=== PATIENT | female | born 1985 | race Caucasian/White ===

== ENCOUNTER 2019-10-27 07:39 | Inpatient (IN) ==
[2019-10-27] MEDS ORDERED: OXYTOCIN 30 UNITS/500 ML BAG IV PRN ×2 (07:53)
[2019-10-27 08:14] LABS: Hematocrit (blood only) 38.6 % (37-47); Mean Corpuscular Hemoglobin 31.6 pg (25-34); Mean Corpuscular Volume 93.7 fL (80-100); Mean Platelet Volume 9.3 fL (7.4-10.4); Platelet Count 327 K/uL (130-400); RDW Coefficient of Variation 14.7 % (11.5-14.5); RDW Standard Deviation 50.3 fL (36.4-46.3); Red Blood Count 4.12 M/uL (4.2-5.4); White Blood Count 9.38 K/uL (4.8-10.8)
[2019-10-27 08:17] LABS: Mean Corpuscular Hgb Conc 33.7 g/dL (32-36)
[2019-10-27 08:43] LABS: Albumin Level 2.6 gm/dl (3.4-5.0); BUN Creatinine Ratio 13.7 (10-20); Calcium 8.6 mg/dl (8.5-10.1); Creatinine Clr Calc Pharmacy 130.4 ml/min; Est GFR (African American) 137.8; Est GFR (Non-African American) 118.9; Potassium 3.9 mmol/L (3.5-5.1)
[2019-10-27 08:45] LABS: Albumin Globulin Ratio 0.7 (0.9-2); Bilirubin,Total 0.3 mg/dl (0.2-1); Total Protein 6.6 gm/dl (6.4-8.2)
[2019-10-27] MEDS: LACTATED RINGER'S 1,000 ML IV PRN ×3 (09:02→18:03)
--- NOTE | 2019-10-27 12:33 | Labor Progress Brief Note ---
Date of Service October 27, 2019 Subjective Reason For Note: Routine Evaluation Current Pain Level(1-10): 5 Assessment & Plan (1) resulting from in vitro fertilization: Cat 1. Progressing slowly. GBS negative Physical Exam Genitourinary: Manual OB Exam: + cervical dilation 2 cm, + cervical effacement 80%, + station -2 and + amniotic fluid clear OB Exam Monitor Tracing: + external FHT monitor used, + external uterine monitor used, + category I and + normal FHT variability; no early decelerations present, no late decelerations present and no variable decelerations Results & Data Vital Signs (Past 12 Hours) Vital Signs Temp Pulse Resp BP 10/27/19 12:06 76 118/74 10/27/19 11:06 65 119/78 10/27/19 11:01 36.9 C 18 10/27/19 10:08 36.8 C 10/27/19 10:05 68 129/76 10/27/19 09:05 81 121/83 10/27/19 08:04 36.6 C 16 10/27/19 07:48 80 127/77
[2019-10-27] MEDS ORDERED: ePHEDrine sulfate 50 MG/ML AMP ONE (14:02)
[2019-10-27] MEDS ORDERED: fentaNYL citrate 100 MCG/2 ML VIAL ONE (14:02)
[2019-10-27] MEDS ORDERED: BUPIVACAINE 0.25% 30 ML VIAL ONE (14:02)
[2019-10-27] MEDS ORDERED: fentaNYL 2MCG/ML ROPIV 1.25MG/ML 100 ML BAG EPI ONE (14:03)
[2019-10-27] MEDS ORDERED: ePHEDrine sulfate 50 MG/ML AMP IV PRN (14:21)
[2019-10-27] MEDS ORDERED: NALBUPHINE HCL INJ 10 MG/ML AMP IV PRN (14:21)
[2019-10-27] MEDS ORDERED: fentaNYL 2MCG/ML ROPIV 1.25MG/ML 100 ML BAG EPI PRN (14:21)
[2019-10-27] MEDS ORDERED: ONDANSETRON INJ 2 MG/ML 2 ML VIAL IV PRN (14:21)
[2019-10-27] MEDS ORDERED: NALOXONE HCL 0.4 MG/1 ML VIAL/CARP IV PRN (14:21)
[2019-10-27] MEDS ORDERED: DiphenhydrAMINE HCL 50 MG/ML VIAL IV PRN (14:21)
[2019-10-27] MEDS ORDERED: NALOXONE HCL 1 MG in SODIUM CHLORIDE 0.9% 1000ML 1,000 ML IV PRN (14:21)
--- NOTE | 2019-10-27 14:27 | Anesthesiology Consultation ---
Date of Service October 27, 2019 Assessment & Plan (1) Encounter for pre-operative examination: Chart Review Chart Review: Acceptable Risk for Labor Epidural Consults Requested none ASA ASA2 Proposed Anesthesia Anesthesia Type: Labor Epidural Risk / Benefits Reviewed With: PT / POA / Parent / Guardian, Accepts Plan and Informed Consent Obtained History Height/Weight Height: 5 ft 2 in Weight: 81.193 kg Allergies Allergy/AdvReac Type Severity Reaction Status Date / Time Penicillins Allergy Rash Verified 10/27/19 08:01 Medications Home Medications Medication Instructions Recorded Confirmed Last Taken cholecalciferol (vitamin D3) 2,000 unit PO DAILY 10/23/19 10/27/19 10/26/19 12:00 [Vitamin D3] vit no.[id number] 1 tab PO DAILY 10/23/19 10/27/19 10/26/19 12:00 [ Vitamin] Active Medications Generic Name Dose Route Start Last Admin Trade Name Freq PRN Reason Stop Dose Admin Lactated Ringer's 1,000 mls @ 125 mls/hr 10/27/19 07:53 10/27/19 14:05 Lr IV 10/29/19 07:52 999 mls/hr .Q8H PRN Administration L&D Protocol Protocol Oxytocin 30 units in 500 mls @ 10 mls/hr 10/27/19 07:53 10/27/19 12:00 Pitocin IV 10/29/19 07:52 0.6 units/hr .Q24H PRN 10 mls/hr Labor Induction/Augmentation Titration Protocol 0.6 UNITS/HR Past Medical History Medical History History of chicken pox History of female infertility Screening, , for anatomic survey (Inactive) Exercise / Class Metabolic Activity II 4-5 Yardwork/Stairs/Walk up hill Past Family History Family History Mother Cardiac disorder Hypertension Osteoporosis Dyslipidemia Father Hypertension Dyslipidemia Uncle Hemochromatosis paternal uncle Grandfather (Paternal) Diabetes Past Surgical History Surgical History History of hysterosalpingogram History of in vitro fertilization Past Anesthesia History No Hx of Anesthesia Complications and No Family Hx of Anesthesia Complications History of PONV No Hx of PONV and No Hx of Motion Sickness Social History Smoking Status: Never smoker Hx Alcohol Use: No Hx Substance Use: No substance use type: does not use Physical Exam Vital Signs Last Vital Signs Temp 98.4 F 10/27/19 12:49 Pulse 75 10/27/19 14:21 Resp 18 10/27/19 11:01 BP 105/65 10/27/19 14:21 Pulse Ox 99 10/27/19 14:19 ENMT Mouth: no dentition abnormality Thyromental Distance: > or= 3.5 Finger Breadths Mallampati Class: II Neck normal visual inspection Respiratory normal respiratory effort Auscultation: lungs clear to auscultation bilaterally Cardiovascular Rate/Rhythm: regular rate and regular rhythm Testing Laboratory Results 10/27/19 08:04 10/27/19 08:04
[2019-10-27 22:26] LABS: Base Excess Cord Arterial Bld -15.9 mEq/L (-9-1.8); Base Excess Cord Venous Blood -12.3 mEq/L (-7.7-1.9); CO2 Cord Arterial Blood 71 mmHg (39.1-73.5); Cord Venous Blood HCO3 17 mmol/L (18.4-26.8); Cord Venous Blood PCO2 52 mmHg (30.4-57.2); Cord Venous Blood PO2 23 mmHg (14.1-43.3); Cord Venous Blood pH 7.13 (7.20-7.44); HCO3 Cord Arterial Blood 17 mmol/L (19.7-28.5); O2 Saturation Cord Venous Bld < 60.0 % (<68); Oxygen Sat Cord Arterial Blood < 60.0 % (<60)
--- NOTE | 2019-10-27 23:39 | Delivery Summary ---
DATE OF OPERATION: 10/27/2019 PROCEDURE: Normal spontaneous vaginal delivery with second-degree perineal laceration repair. SURGEON: Mychal Collins MD PREOPERATIVE DIAGNOSES: 1. Single intrauterine at term. 2. resulting from in-vitro fertilization. 3. Elective induction of labor. POSTOPERATIVE DIAGNOSIS: Status post delivery, thick meconium. ESTIMATED BLOOD LOSS: 350 mL. DRAINS: None. FLUIDS: Continuous lactated Ringer. URINE OUTPUT: Approximately 400 mL via straight cath at the completion of the case. COMPLICATIONS: None. FINDINGS: Viable male with weight of 6 pounds 0 ounces with Apgars of 3, 6, and 8 at 1, 5, and 10 minutes respectively. INDICATIONS: Karyn is a 34-year-old G1, P0, admitted at 39 weeks 1 day gestational age for elective induction of labor. At initial evaluation, she was found to be 1-2 cm dilated, 80% effaced, -3 station. The patient was started on oxytocin per regular protocol. She underwent spontaneous rupture of membranes and progressed in labor. On reevaluation, she was found to be approximately 5 cm dilated, at which time she got an epidural. The patient continued to progress in labor to complete-complete +2 station, at which time she felt the urge to push and pushed for approximately 2 hours to achieve delivery. DESCRIPTION OF PROCEDURE: The patient progressed to 10 cm dilated, 100% effaced, +2 station, pushed over intact perineum with epidural anesthesia and delivered a viable male with weight and Apgars as noted above. Head of the delivered in BERNARDO position, rest into right transverse. A single nuchal was noted which was easily reduced. There was noted to be a posterior compound arm which was reduced to achieve delivery. There was noted to be terminal thickness and meconium stained fluid and the was noted to be floppy upon delivery. Approximately 20-25 seconds of stimulation with suction bulb occurred. The baby was still not showing signs of activity and the cord was double clamped and cut. was taken to the waiting nursery staff. Segment cord blood was obtained. Attention was then turned to the delivery of the placenta, which was delivered intact with 3-vessel cord with gentle cord traction. On inspection of the perineum, vagina, and cervix, there was noted to be a second-degree perineal laceration extending up into bilateral sulcal lacerations. These were repaired with 3-0 Vicryl continuous running locked suture with continuation at the perineum of a crown suture. The needle, sponge, and instrument counts were correct at the completion of the case. Both mother and were stable in the immediate post-delivery period and remained in the room. I attest to the content of the Intraoperative Record and any orders documented therein. Any exception s are noted below.
[2019-10-28] MEDS ORDERED: SUPERCREAM 0.870% 15 GM JAR EXT PRN (00:58)
[2019-10-28] MEDS ORDERED: bisacodyL 10 MG SUPP PR PRN (00:58)
[2019-10-28] MEDS ORDERED: OXYTOCIN 30 UNITS/500 ML BAG IV PRN (00:58)
[2019-10-28] MEDS ORDERED: BENZOCAINE 20% AER SPR 82.5 GM CAN EXT PRN (00:58)
[2019-10-28] MEDS ORDERED: HYDROCORTISONE ACETATE 25 MG SUPP PR PRN (00:58)
[2019-10-28] MEDS ORDERED: ACETAMINOPHEN 325 MG TAB PO PRN (00:58)
[2019-10-28] MEDS ORDERED: DIPHTHERIA/TETANUS/PERTUSSIS 0.5 ML SYR/VIAL IM ONE (00:58)
[2019-10-28] MEDS: IBUPROFEN 600 MG TAB PO PRN ×2 (02:58→18:53)
[2019-10-28 06:40] LABS: Hematocrit (blood only) 34.2 % (37-47); Hemoglobin 11.4 g/dL (12.0-16.0)
--- NOTE | 2019-10-28 07:27 | Anesthesia Procedure Note ---
Date of Service October 28, 2019 Anesthesia Post Epidural Note Vital Signs Vital Signs: Temp Pulse Resp BP Pulse Ox 36.6 C 86 20 125/78 97 10/28/19 05:00 10/28/19 05:00 10/28/19 05:00 10/28/19 05:00 10/28/19 00:28 Notes Mental Status: alert / awake / arousable Nausea / Vomiting: adequately controlled Pain: adequately controlled Airway Patency, RR, SpO2: stable & adequate BP & HR: stable & adequate Hydration State: stable & adequate Neuraxial Anesthesia: was administered and sensory block is resolving Anesthetic Complications: no major complications apparent Epidural: Removed without complications and With tip intact
[2019-10-28] MEDS: DOCUSATE SODIUM 100 MG CAP PO SCH ×2 (08:21→20:29)
[2019-10-28] MEDS: PRENATAL VITAMIN 1 TAB PO SCH (08:21)
--- NOTE | 2019-10-28 08:26 | Obstetrical Progress Note ---
Date of Service October 28, 2019 Assessment & Plan (1) resulting from in vitro fertilization: 34yo PPD 1 from . Doing well. Continue routine care Subjective Ambulation: ambulating normally Voiding: no voiding problems Diet Tolerance:: regular diet Lochia:: Moderate Feeding Type:: breast feeding Physical Exam Constitutional WD/WN, vitals as above Respiratory normal respiratory effort; no respiratory distress and no labored breathing Gastrointestinal (Abdomen) Inspection/Auscultation: abdomen normal to inspection; abdomen not distended Percussion/Palpation: abdomen soft; abdomen nontender, no guarding and abdomen not rigid Genitourinary OB Exam Abdomen: + fundal height Fundus: + firm and + relation to umbilicus (Below); not tender and not boggy Results & Data Vital Signs (Past 12 Hours) Vital Signs Temp Pulse Pulse Resp BP BP Pulse Ox 10/28/19 07:10 36.6 C 78 14 120/80 97 10/28/19 05:00 36.6 C 86 20 125/78 10/28/19 01:00 36.8 C 105 H 18 131/85 10/28/19 00:28 103 H 97 10/28/19 00:25 101 H 18 133/64 97 10/28/19 00:23 113 H 97 10/28/19 00:18 117 H 97 10/28/19 00:13 114 H 98 10/28/19 00:11 110 H 143/67 H 10/28/19 00:08 106 H 98 10/28/19 00:03 92 H 98 10/27/19 23:58 109 H 98 10/27/19 23:56 93 H 18 161/63 H 98 10/27/19 23:53 102 H 98 10/27/19 23:48 99 H 98 10/27/19 23:43 111 H 97 10/27/19 23:38 104 H 97 10/27/19 23:33 86 98 10/27/19 23:28 90 98 10/27/19 23:26 92 H 18 125/59 L 10/27/19 23:23 96 H 97 10/27/19 23:18 91 H 98 10/27/19 23:13 87 97 10/27/19 23:11 93 H 18 131/60 97 10/27/19 23:08 103 H 97 10/27/19 23:03 95 H 98 10/27/19 22:58 94 H 98 10/27/19 22:56 99 H 18 166/88 H 10/27/19 22:53 90 98 10/27/19 22:48 93 H 98 10/27/19 22:43 94 H 98 10/27/19 22:41 89 18 125/68 98 10/27/19 22:38 93 H 97 10/27/19 22:33 99 H 98 10/27/19 22:28 110 H 98 10/27/19 22:26 37 C 60 18 120/65 10/27/19 22:23 106 H 98 10/27/19 22:18 103 H 98 10/27/19 22:13 96 H 98 10/27/19 22:11 97 H 140/64 10/27/19 22:08 106 H 98 10/27/19 22:05 117 H 145/76 H 10/27/19 22:04 110 H 86 L 10/27/19 22:03 105 H 99 10/27/19 21:58 95 H 98 10/27/19 21:56 95 H 88 L 10/27/19 21:53 97 H 98 10/27/19 21:48 104 H 98 10/27/19 21:46 170 H 84 L 10/27/19 21:43 106 H 169/131 H 99 10/27/19 21:38 101 H 99 10/27/19 21:33 106 H 99 10/27/19 21:28 107 H 100 10/27/19 21:26 18 10/27/19 21:23 134 H 97 10/27/19 21:18 137 H 98 10/27/19 21:14 124 H 87 L 10/27/19 21:13 123 H 94 10/27/19 21:11 112 H 139/71 10/27/19 21:08 122 H 98 10/27/19 21:07 104 H 87 L 10/27/19 21:02 113 H 95 10/27/19 21:00 18 10/27/19 20:57 116 H 98 10/27/19 20:56 116 H 147/71 H 76 L 10/27/19 20:52 118 H 97 10/27/19 20:50 127 H 86 L 10/27/19 20:47 124 H 98 10/27/19 20:41 118 H 97 01/03/20 20:36 109 H 98 10/27/19 20:34 109 H 86 L 10/27/19 20:31 110 H 91 10/27/19 20:30 18 10/27/19 20:27 116 H 123/74 10/27/19 20:26 121 H 98 10/27/19 20:25 111 H 87 L
--- NOTE | 2019-10-29 06:33 | Obstetrical Progress Note ---
Date of Service October 29, 2019 Assessment & Plan (1) : PPD#2 doing well. DC home. Instructions reviewed. Subjective Ambulation: ambulating normally Voiding: no voiding problems Diet Tolerance:: regular diet Lochia:: Moderate Review of Systems All systems reviewed & are unremarkable except as noted in HPI & below Physical Exam Constitutional WD/WN, vitals as above no acute distress Respiratory normal respiratory effort Cardiovascular Rate/Rhythm: regular rate and regular rhythm Gastrointestinal (Abdomen) Inspection/Auscultation: abdomen normal to inspection; abdomen not distended Percussion/Palpation: abdomen soft Genitourinary OB Exam Abdomen: + fundal height Fundus: + firm; not tender Results & Data Vital Signs (Past 12 Hours) Vital Signs Temp Pulse Resp BP 10/28/19 23:15 36.6 C 99 H 18 126/84 10/28/19 20:30 36.6 C 83 18 115/72
[2019-10-29] MEDS: PRENATAL VITAMIN 1 TAB PO SCH (08:22)
[2019-10-29] MEDS: DOCUSATE SODIUM 100 MG CAP PO SCH (08:22)
[2019-10-29] MEDS: IBUPROFEN 600 MG TAB PO PRN ×2 (09:02→15:21)
[2019-10-29] MEDS ORDERED: bisacodyL 5 MG TABEC PO SCH (20:00)
== END 2019-10-29 17:30 | disposition home or self-care (01) | DRG 807 ==
LOC: 4S1 07:39 → 4S2 10-28 00:50

== ENCOUNTER 2023-02-14 17:44 | Inpatient (IN) ==
[2023-02-14] MEDS ORDERED: OXYTOCIN 30 UNITS/500 ML BAG IV PRN ×2 (17:57→20:47)
[2023-02-14] MEDS ORDERED: LACTATED RINGER'S 1,000 ML IV PRN (17:57)
[2023-02-14] MEDS ORDERED: LIDOCAINE 1% LOCAL 20 ML VIAL INFIL PRN (17:57)
[2023-02-14] MEDS ORDERED: ePHEDrine sulfate 50 MG/ML AMP ONE (18:16)
[2023-02-14] MEDS ORDERED: fentaNYL citrate PF 100 MCG/2 ML VIAL ONE (18:16)
[2023-02-14] MEDS ORDERED: fentaNYL 2MCG/ML ROPIVACAINE 1.25MG/ML 100 ML BAG EPI ONE (18:17)
[2023-02-14] MEDS ORDERED: BUPIVACAINE 0.25% PF 30 ML VIAL ONE (18:17)
[2023-02-14] MEDS ORDERED: SODIUM CHLORIDE 0.9% PF INJ 10 ML VIAL ONE (18:17)
[2023-02-14] MEDS ORDERED: LIDOCAINE 2%/EPINEPHRINE 1:200,000 20 ML PF ONE (18:17)
[2023-02-14 18:29] LABS: Hematocrit (blood only) 37.3 % (37.0-47.0); Hemoglobin 12.7 g/dl (12.0-16.0); Mean Corpuscular Hemoglobin 30.7 pg (25.0-34.0); Mean Corpuscular Volume 90.1 fL (80.0-100.0); Mean Platelet Volume 9.1 fL (9.4-12.4); Platelet Count 330 K/uL (130-400); RDW Coefficient of Variation 13.9 % (11.5-14.5); RDW Standard Deviation 45.5 fL (36.4-46.3); Red Blood Count 4.14 M/uL (4.20-5.40); White Blood Count 10.79 K/ul (4.8-10.8)
[2023-02-14] MEDS ORDERED: ONDANSETRON INJ 2 MG/ML 2 ML VIAL IV PRN (18:45)
[2023-02-14] MEDS ORDERED: ePHEDrine sulfate 50 MG/ML AMP IV PRN (18:45)
[2023-02-14] MEDS ORDERED: NALOXONE HCL 1 MG in SODIUM CHLORIDE 0.9% 1000ML 1,000 ML IV PRN (18:45)
[2023-02-14] MEDS ORDERED: fentaNYL 2MCG/ML ROPIVACAINE 1.25MG/ML 100 ML BAG EPI PRN (18:45)
[2023-02-14] MEDS ORDERED: NALBUPHINE HCL INJ 10 MG/ML AMP IV PRN (18:45)
[2023-02-14] MEDS ORDERED: NALOXONE HCL 0.4 MG/1 ML VIAL/CARP IV PRN (18:45)
[2023-02-14] MEDS ORDERED: diphenhydrAMINE 50 MG/ML VIAL IV PRN (18:45)
--- NOTE | 2023-02-14 18:48 | Anesthesiology Consultation ---
Date of Service February 14, 2023 Assessment & Plan (1) Encounter for pre-operative examination: Chart Review Chart Review: Patient NOT seen in Pre Admission Testing and Acceptable Risk for Labor Epidural Consults Requested none History Height/Weight Height: 5 ft 2 in Weight: 83.915 kg Allergies Allergy/AdvReac Type Severity Reaction Status Date / Time Penicillins Allergy Rash Verified 02/11/23 08:47 Medications Home Medications Medication Instructions Recorded Confirmed Last Taken prenat.vits,kimani,[id number] 1 tab PO DAILY 06/25/22 02/11/23 Unknown metoclopramide HCl 10 mg tablet 10 mg PO Q6H PRN nausea and 07/03/22 02/11/23 Unknown vomiting #20 tabs breast pump #1 ea 02/11/23 02/11/23 Unknown Active Medications Generic Name Dose Route Start Last Admin Trade Name Freq PRN Reason Stop Dose Admin Lactated Ringer's 1,000 mls @ 125 mls/hr 02/14/23 17:57 02/14/23 18:49 Lr IV 02/16/23 17:56 125 mls/hr .Q8H PRN Infusion L&D Protocol Protocol Past Medical History Medical History History of chicken pox History of female infertility Screening, , for anatomic survey Exercise / Class Metabolic Activity II 4-5 Yardwork/Stairs/Walk up hill Past Family History Family History Mother Cardiac disorder Hypertension Osteoporosis Dyslipidemia Father Hypertension Dyslipidemia Uncle Hemochromatosis paternal uncle Grandfather (Paternal) Diabetes Denies family history of Ovarian cancer Breast cancer Colorectal cancer Past Surgical History Surgical History History of hysterosalpingogram History of in vitro fertilization Past Anesthesia History No Hx of Anesthesia Complications and No Family Hx of Anesthesia Complications History of PONV No Hx of PONV and No Hx of Motion Sickness Social History Smoking Status: Never smoker Hx Alcohol Use: No Hx Substance Use: No substance use type: does not use Physical Exam Vital Signs Last Vital Signs Temp 36.4 C L 02/14/23 18:08 Pulse 75 02/14/23 19:16 Resp 20 02/14/23 18:08 BP 108/62 04/23/23 19:16 Pulse Ox 99 02/14/23 19:13 Testing Laboratory Results 02/14/23 18:07 Blood Type B Positive 02/14/23 18:07 Antibody Screen NEGATIVE 02/14/23 18:07
--- NOTE | 2023-02-14 20:22 | Delivery Summary ---
Vaginal Delivery Summary Date of Service February 14, 2023 Vaginal Delivery Summary Spontaneous vaginal delivery patient arrived in active labor at 7 cm requested epidural at that time anesthesia decided on a spinal she was then ruptured membranes artificially by me for thin meconium she pushed soon afterwards delivering baby in occiput anterior mouth and then nares were suctioned a loose cord passed over the head gentle traction the baby no excessive force easy delivery live vigorous female cord clamped and cut cord blood obtained placenta removed with gentle traction second-degree tear repaired with 3-0 Vicryl estimated blood loss 200 mL sponge and instrument counts correct
[2023-02-14] MEDS ORDERED: BENZOCAINE 20% AER SPR 82.5 GM CAN EXT PRN (20:47)
[2023-02-14] MEDS ORDERED: ACETAMINOPHEN 325 MG TAB PO PRN (20:47)
[2023-02-14] MEDS ORDERED: DIPHTHERIA/TETANUS/PERTUSSIS 0.5mL SYR/VIAL (Age 7+yrs) IM ONE (20:47)
[2023-02-14] MEDS ORDERED: HYDROCORTISONE ACETATE 25 MG SUPP PR PRN (20:47)
[2023-02-14] MEDS ORDERED: oxyCODONE/ACETAMINOPHEN 5mg/325mg TAB PO PRN (20:47)
[2023-02-14] MEDS ORDERED: bisacodyL 10 MG SUPP PR PRN (20:47)
[2023-02-14] MEDS: IBUPROFEN 600 MG TAB PO PRN (21:07)
[2023-02-14] MEDS: DOCUSATE SODIUM 100 MG CAP PO SCH (21:19)
--- NOTE | 2023-02-15 07:00 | Obstetrical Progress Note ---
Date of Service <Israel MonteMagdiel Nura - Last Filed: 02/15/23 07:36> February 15, 2023 Assessment & Plan <Israel Lyman - Last Filed: 02/15/23 07:36> (1) Vaginal delivery: - Feels well today. Eating well, voiding well, ambulating well. - Pain well controlled with ibuprofen 600mg Q4H PRN - Routine care -- OOB, ambulation, diet progression as tolerated - After discharge will have 6 week follow-up. Day #:: 1 <Leandro Kemp MD, FACOG - Last Filed: 02/15/23 07:41> (1) Vaginal delivery: Subjective <Israel MonteMagdiel AdanDO helene - Last Filed: 02/15/23 07:36> Ambulation: ambulating normally Voiding: no voiding problems Passing Gas:: Yes Diet Tolerance:: regular diet Lochia:: Small Feeding Type:: breast feeding Current Pain Level(1-10): 2 Review of Systems Denies fever, chills, sweats Denies shortness of breath, difficulty breathing, chest pain, palpitations, chest pressure. Denies breast pain. Denies dysuria. Denies headache or changes in vision. Physical Exam <Israel MonteMagdiel Adanhelene - Last Filed: 02/15/23 07:36> General: Alert, oriented. No acute distress. Cardiac: Regular rate and rhythm, no murmurs/rubs/gallops. Respiratory: Clear to auscultation bilaterally a/p, no wheezes/rales/rhonchi. No increased work of breathing. Symmetrical chest rise. No respiratory distress. Abdomen: Soft, nontender, nondistended. Bowel sounds present. Uterus: Uterine fundus firm Lower Extremities: No lower extremity edema or swelling. No deep calf pain. Mateo's negative bilaterally. Results & Data <Israel MonteMagdiel AdanDO helene - Last Filed: 02/15/23 07:36> Vital Signs (Past 12 Hours) Vital Signs Temp Pulse Pulse Resp BP BP Pulse Ox 02/15/23 04:25 36.5 C 71 16 112/76 98 02/14/23 22:47 37.0 C 89 16 124/84 95 02/14/23 22:15 36.8 C 18 02/14/23 21:45 18 02/14/23 21:15 18 02/14/23 21:00 18 02/14/23 20:45 18 02/14/23 20:30 18 02/14/23 20:15 36.9 C 18 02/14/23 22:19 79 02/14/23 22:19 119/58 L 02/14/23 22:05 76 02/14/23 22:05 134/64 02/14/23 21:05 72 02/14/23 21:05 127/59 L 02/14/23 21:00 74 02/14/23 21:00 119/59 L 02/14/23 20:00 20 02/14/23 20:00 20 02/14/23 19:45 20 02/14/23 19:45 20 02/14/23 20:55 86 02/14/23 20:55 131/69 02/14/23 20:50 86 02/14/23 20:50 114/55 L 02/14/23 20:42 179/124 H 02/14/23 20:04 99 02/14/23 20:04 150 H 02/14/23 20:03 92 02/14/23 20:03 116 H 02/14/23 19:59 99 02/14/23 19:59 121 H 02/14/23 19:58 126 H 02/14/23 19:58 129/61 02/14/23 19:53 87 L 02/14/23 19:53 111 H 02/14/23 19:51 91 02/14/23 19:51 137 H 02/14/23 19:48 97 02/14/23 19:48 120 H 02/14/23 19:44 89 L 02/14/23 19:44 109 H 02/14/23 19:43 99 02/14/23 19:43 98 H 02/14/23 19:41 105 H 02/14/23 19:41 174/108 H 02/14/23 19:38 98 02/14/23 19:38 105 H 02/14/23 19:33 97 02/14/23 19:33 112 H 02/14/23 19:30 18 02/14/23 19:30 18 02/14/23 19:28 100 02/14/23 19:28 96 H 02/14/23 19:27 111 H 02/14/23 19:27 187/74 H 02/14/23 19:26 87 02/14/23 19:26 161/77 H 02/14/23 19:23 99 02/14/23 19:23 89 02/14/23 19:24 87 02/14/23 19:24 134/61 02/14/23 19:23 93 02/14/23 19:23 90 02/14/23 19:22 82 02/14/23 19:22 116/64 02/14/23 19:20 81 02/14/23 19:20 127/67 02/14/23 19:18 99 02/14/23 19:18 83 02/14/23 19:18 18 02/14/23 19:18 36.7 C 18 02/14/23 19:18 79 02/14/23 19:18 107/67 02/14/23 19:16 75 02/14/23 19:16 108/62 02/14/23 19:13 99 02/14/23 19:13 69 02/14/23 19:14 71 02/14/23 19:14 107/57 L 02/14/23 19:08 97 02/14/23 19:08 67 02/14/23 19:03 98 02/14/23 19:03 73 O2 Del Method 02/15/23 04:25 Room Air 02/14/23 22:47 Room Air 02/14/23 22:15 02/14/23 21:45 02/14/23 21:15 02/14/23 21:00 02/14/23 20:45 02/14/23 20:30 02/14/23 20:15 02/14/23 22:19 02/14/23 22:19 02/14/23 22:05 02/14/23 22:05 02/14/23 21:05 02/14/23 21:05 02/14/23 21:00 02/14/23 21:00 02/14/23 20:00 02/14/23 20:00 02/14/23 19:45 02/14/23 19:45 02/14/23 20:55 02/14/23 20:55 02/14/23 20:50 02/14/23 20:50 02/14/23 20:42 02/14/23 20:04 02/14/23 20:04 02/14/23 20:03 02/14/23 20:03 02/14/23 19:59 02/14/23 19:59 02/14/23 19:58 02/14/23 19:58 02/14/23 19:53 02/14/23 19:53 02/14/23 19:51 02/14/23 19:51 02/14/23 19:48 02/14/23 19:48 02/14/23 19:44 02/14/23 19:44 02/14/23 19:43 02/14/23 19:43 02/14/23 19:41 02/14/23 19:41 02/14/23 19:38 02/14/23 19:38 02/14/23 19:33 02/14/23 19:33 02/14/23 19:30 02/14/23 19:30 02/14/23 19:28 02/14/23 19:28 02/14/23 19:27 02/14/23 19:27 02/14/23 19:26 02/14/23 19:26 02/14/23 19:23 02/14/23 19:23 02/14/23 19:24 02/14/23 19:24 02/14/23 19:23 02/14/23 19:23 02/14/23 19:22 02/14/23 19:22 02/14/23 19:20 02/14/23 19:20 02/14/23 19:18 02/14/23 19:18 02/14/23 19:18 02/14/23 19:18 02/14/23 19:18 02/14/23 19:18 02/14/23 19:16 02/14/23 19:16 02/14/23 19:13 02/14/23 19:13 02/14/23 19:14 02/14/23 19:14 02/14/23 19:08 02/14/23 19:08 02/14/23 19:03 02/14/23 19:03 <Leandro Kemp MD, FACOG - Last Filed: 02/15/23 07:41> Co-Signing Physician Notes Resident Physician Supervision Note: I was present with Dr. Darden during the history and exam. I discussed the case with the resident and agree with the findings and plan as documented in the note. Any exceptions or clarifications are listed here: [None] Documented By: Leandro Kemp MD, FACOG Resident Activity Tracking <Israel Lyman, DO - Last Filed: 02/15/23 07:36> Resident Involvement: Resident Care Provided Care Provided: OB Delivery
[2023-02-15 07:05] LABS: Hematocrit (blood only) 32.1 % (37.0-47.0); Hemoglobin 10.6 g/dl (12.0-16.0); Mean Corpuscular Hemoglobin 30.3 pg (25.0-34.0); Mean Corpuscular Volume 91.7 fL (80.0-100.0); Mean Platelet Volume 9.4 fL (9.4-12.4); Platelet Count 287 K/uL (130-400); RDW Standard Deviation 46.9 fL (36.4-46.3); White Blood Count 15.39 K/ul (4.8-10.8)
[2023-02-15] MEDS: DOCUSATE SODIUM 100 MG CAP PO SCH ×2 (07:58→19:19)
[2023-02-15] MEDS: IBUPROFEN 600 MG TAB PO PRN ×2 (07:58→19:19)
[2023-02-15] MEDS: PRENATAL VITAMIN 1 TAB PO SCH (07:58)
[2023-02-15] MEDS ORDERED: bisacodyL 5 MG TABEC PO SCH (20:00)
--- NOTE | 2023-02-16 06:44 | Obstetrical Progress Note ---
Date of Service <Israel Lyman DO - Last Filed: 02/16/23 07:25> February 16, 2023 Assessment & Plan <Israel Lyman DO - Last Filed: 02/16/23 07:25> (1) Vaginal delivery: - Feels well today. Eating well, voiding well, ambulating well. - Pain well controlled with ibuprofen 600mg Q4H PRN - Routine care -- OOB, ambulation, diet progression as tolerated - After discharge will have 6 week follow-up with Dr. Hunt. - Will discharge today. Day #:: 2 <Leisa Rachel MD, FACOG - Last Filed: 02/16/23 07:52> (1) Vaginal delivery: Subjective <Israel Lyman DO - Last Filed: 02/16/23 07:25> Ambulation: ambulating normally Voiding: no voiding problems Passing Gas:: Yes Diet Tolerance:: regular diet Lochia:: Small Feeding Type:: breast feeding Current Pain Level(1-10): 1 Review of Systems Denies fever, chills, sweats Denies shortness of breath, difficulty breathing, chest pain, palpitations, chest pressure. Denies breast pain. Denies dysuria. Denies headache or changes in vision. Physical Exam <Israel Lyman DO - Last Filed: 02/16/23 07:25> General: Alert, oriented. No acute distress. Cardiac: Regular rate and rhythm, no murmurs/rubs/gallops. Respiratory: Clear to auscultation bilaterally a/p, no wheezes/rales/rhonchi. No increased work of breathing. Symmetrical chest rise. No respiratory distress. Abdomen: Soft, nontender, nondistended. Bowel sounds present. Uterus: Uterine fundus firm, palpable 3 cm below umbilicus. Lower Extremities: No lower extremity edema or swelling. No deep calf pain. Mateo's negative bilaterally. Results & Data <Israel Lyman - Last Filed: 02/16/23 07:25> Vital Signs (Past 12 Hours) Vital Signs Temp Pulse Resp BP Pulse Ox O2 Del Method 02/15/23 23:35 72 18 119/83 97 Room Air 02/15/23 19:55 36.8 C 80 18 118/79 97 Room Air <Leisa Rachel MD, FACOG - Last Filed: 02/16/23 07:52> Co-Signing Physician Notes Resident Physician Supervision Note: I interviewed and examined the patient. Discussed with Dr. Lyman and agree with findings and plan as documented in the note. Any exceptions or clarifications are listed here: [None] Documented By: Leisa Rachel MD, FACOG Resident Activity Tracking <Israel Lyman DO - Last Filed: 02/16/23 07:25> Resident Involvement: Resident Care Provided Care Provided: OB Delivery
[2023-02-16 06:54] LABS: Hematocrit (blood only) 35.6 % (37.0-47.0); Hemoglobin 11.7 g/dl (12.0-16.0)
[2023-02-16] MEDS: PRENATAL VITAMIN 1 TAB PO SCH (09:08)
[2023-02-16] MEDS: DOCUSATE SODIUM 100 MG CAP PO SCH (09:08)
== END 2023-02-16 12:10 | disposition home or self-care (01) | DRG 807 ==
LOC: OPB 17:44 → 4S1 17:47 → 4E2 22:53